=== PATIENT | male | born 1985 | race Caucasian/White ===

== ENCOUNTER 2021-01-23 10:09 | Emergency (ER) | payer OTHER ==
[2021-01-23 10:17] VITALS: BP 162/113; PULSE 95; RESP 16; TEMP 97.6
--- NOTE | 2021-01-23 10:48 | ED ---
General Adult HPI - General Chief complaint: Neuro Symptoms/Deficit Stated complaint: facial numbness Time Seen by Provider: 01/23/21 10:25 Source: patient Mode of arrival: ambulatory Limitations: no limitations - History of Present Illness Initial comments: 35-year-old male with history of bipolar and alcohol abuse presents to emergency department with a chief complaint of facial numbness. Patient reports his facial numbness happened yesterday lasted for several hours. He decided to drink and O2 alleviate his symptoms which then resolved. Patient reports he woke up this morning and noticed the symptoms again. States most of the tenderness sensation is located on the left cheek. He denies one sided facial weakness or drooping. He denies any blurry vision, one-sided weakness or paresthesias in the extremities. He denies any headaches, nausea, vomiting. He denies any chest pain or shortness of breath. States he otherwise drinks about a fifth per day of alcohol. His bipolar disorder is not currently treated. - Related Data Home Medications Medication Instructions Recorded Confirmed No Known Home Medications 01/23/21 01/23/21 Allergies Allergy/AdvReac Type Severity Reaction Status Date / Time No Known Allergies Allergy Verified 01/23/21 10:53 Review of Systems ROS Statement: Those systems with pertinent positive or pertinent negative responses have been documented in the HPI. ROS Other: All systems not noted in ROS Statement are negative. Past Medical History Additional Past Medical History / Comment(s): ruptured spleen History of Any Multi-Drug Resistant Organisms: None Reported Past Psychological History: Bipolar Smoking Status: Current every day smoker Past Alcohol Use History: Daily Past Drug Use History: Marijuana General Exam Limitations: no limitations General appearance: alert, in no apparent distress Head exam: Present: atraumatic, normocephalic, normal inspection Eye exam: Present: normal appearance, PERRL, EOMI. Absent: scleral icterus, conjunctival injection, nystagmus Pupils: Present: normal accommodation ENT exam: Present: normal exam, normal oropharynx, mucous membranes moist, TM's normal bilaterally, normal external ear exam Neck exam: Present: normal inspection, full ROM. Absent: tenderness Respiratory exam: Present: normal lung sounds bilaterally. Absent: respiratory distress Cardiovascular Exam: Present: regular rate, normal rhythm, normal heart sounds GI/Abdominal exam: Present: soft. Absent: distended, tenderness, guarding, rebound Extremities exam: Present: normal inspection, full ROM, normal capillary refill. Absent: tenderness, pedal edema, joint swelling Back exam: Present: normal inspection, full ROM. Absent: tenderness Neurological exam: Present: alert, oriented X3, CN II-XII intact, normal gait Expanded Patient oriented to: Present: person, place, time Speech: Present: fluid speech Cranial nerves: EOM's Intact: Normal, Gag Reflex: Normal, Tongue Deviation: Normal, Nystagmus: Normal, Facial Sensation: Normal Cerebellar function: Finger to Nose: Normal Sensory exam: Upper Extremity Light Touch: Normal, Upper Extremity Pin Prick: Normal, Lower Extremity Light Touch: Normal, Lower Extremity Pin Prick: Normal DTR: Patellar (R): 4+, Patellar (L): 4+ Psychiatric exam: Present: normal affect, normal mood Skin exam: Present: warm, dry, intact, normal color Course Vital Signs 01/23/21 10:14 Temperature 97.6 F Pulse Rate 95 Respiratory 16 Rate Blood Pressure 162/113 O2 Sat by Pulse 97 Oximetry Medical Decision Making - Medical Decision Making 35-year-old male presenting to the emergency department with a chief complaint of patient tingling. On physical examination, no focal neural deficits. NIH score of 0. Tingling is only located over the left cheek. No concerns for CVA at this time. Could be a possible onset of early Noonan's palsy. Although, he is still able to move his forehead on both sides. CT of the brain is unremarkable. Patient was advised to follow with his primary care physician. Strict return parameters were thoroughly discussed with patient was understanding and agreeable. Case discussed with Dr. Randall. Disposition Clinical Impression: Facial paresthesia Disposition: HOME SELF-CARE Condition: Stable Instructions (If sedation given, give patient instructions): Paresthesia (ED) Additional Instructions: Follow with the primary care physician. Return to emergency department if symptoms worsen. Is patient prescribed a controlled substance at d/c from ED?: No Referrals: Jesus Islas MD [Primary Care Provider] - 1-2 days Time of Disposition: 11:57
--- NOTE | 2021-01-23 11:25 | CT ---
EXAMINATION TYPE: CT brain ramilaine wo con DATE OF EXAM: 01/23/2021 COMPARISON: NONE HISTORY: Left sided face numbness. Neck pain. CT DLP: 1670.5 mGycm. Automated Exposure Control for Dose Reduction was Utilized. TECHNIQUE: CT scan of the head and cervical spine are performed without contrast. FINDINGS: There is no acute intracranial hemorrhage, mass effect, or midline shift identified. The ventricles and sulci are within normal limits in size. Rosenberg-white matter differentiation is maintai swathi. The globes are intact and the visualized sinuses are clear. There is also some deviated to right of midline. Cervical spine is visualized in its entirety from C1 through upper thoracic levels and demonstrates s traightened alignment without evidence of acute fracture or dislocation. Prevertebral soft tissue ap pears within normal limits. The C1-C2 articulation is within normal limits on the coronal images. V ertebral body heights and disc space heights are maintained. Spinal canal is preserved. Axial images show no suspicious abnormality. Thyroid gland is within normal limits. Lung apices show no pneumothor ax. IMPRESSION: 1. There is no acute fracture or dislocation evident in the cervical spine. 2. No acute intracranial hemorrhage or midline shift is seen.
== END 2021-01-23 12:04 | disposition home or self-care (01) ==
LOC: EC 10:09
DX: R20.2 Paresthesia of skin (principal); F31.9 Bipolar disorder, unspecified; F17.200 Nicotine dependence, unspecified, uncomplicated; F12.90 Cannabis use, unspecified, uncomplicated
CPT/HCPCS: 70450; 72125; 99284

== ENCOUNTER 2022-03-10 23:43 | Inpatient (IN) | payer OTHER ==
--- NOTE | 2022-03-11 07:05 | ED ---
Psych HPI - General Chief Complaint: Alcohol Stated Complaint: ETOH Time Seen by Provider: 03/10/22 23:46 Source: EMS Mode of arrival: EMS Limitations: no limitations - History of Present Illness MD Complaint: suicidal ideation, feels depressed -: days(s) Associated Psychiatric Symptoms: depression, suicidal ideation History of same: Yes Quality: getting worse Improves With: none Worsens With: alcohol Context: recent alcohol abuse - Related Data Home Medications Medication Instructions Recorded Confirmed No Known Home Medications 01/23/21 01/23/21 Allergies Allergy/AdvReac Type Severity Reaction Status Date / Time No Known Allergies Allergy Verified 01/23/21 10:53 Review of Systems ROS Statement: Those systems with pertinent positive or pertinent negative responses have been documented in the HPI. ROS Other: All systems not noted in ROS Statement are negative. Constitutional: Denies: fever Respiratory: Denies: cough, dyspnea Cardiovascular: Denies: chest pain, palpitations Gastrointestinal: Denies: abdominal pain, vomiting, diarrhea Genitourinary: Denies: dysuria Musculoskeletal: Denies: back pain Skin: Denies: rash Neurological: Denies: headache Psychiatric: Reports: depression, suicidal thoughts Past Medical History Additional Past Medical History / Comment(s): ruptured spleen History of Any Multi-Drug Resistant Organisms: None Reported Past Psychological History: Bipolar Smoking Status: Current every day smoker Past Alcohol Use History: Daily Past Drug Use History: Marijuana General Exam General appearance: alert, appears intoxicated Head exam: Present: atraumatic, normocephalic Eye exam: Present: normal appearance. Absent: scleral icterus, conjunctival injection ENT exam: Present: normal oropharynx Neck exam: Present: normal inspection Respiratory exam: Present: normal lung sounds bilaterally. Absent: respiratory distress, wheezes, rales, rhonchi, stridor Cardiovascular Exam: Present: regular rate, normal rhythm, normal heart sounds. Absent: systolic murmur, diastolic murmur, rubs, gallop GI/Abdominal exam: Present: soft. Absent: distended, tenderness, guarding, rebound, rigid Extremities exam: Present: normal inspection, normal capillary refill. Absent: pedal edema, calf tenderness Back exam: Present: normal inspection Neurological exam: Present: alert Psychiatric exam: Present: depressed, suicidal ideation. Absent: agitated, anxious, flat affect, manic, homicidal ideation Skin exam: Present: warm, dry, intact, normal color. Absent: rash Course Vital Signs 03/10/22 03/11/22 03/11/22 23:46 01:06 03:14 Temperature 98.8 F Pulse Rate 99 84 82 Respiratory 20 18 18 Rate Blood Pressure 139/101 141/94 145/98 O2 Sat by Pulse 96 97 99 Oximetry 03/11/22 03/11/22 04:46 06:00 Temperature Pulse Rate 82 89 Respiratory 18 18 Rate Blood Pressure 147/88 144/97 O2 Sat by Pulse 97 96 Oximetry Disposition Clinical Impression: Alcoholic intoxication, Mood disorder Disposition: ADMITTED IP TO THIS HOSP Condition: Fair Instructions (If sedation given, give patient instructions): Mood Disorders (ED) Is patient prescribed a controlled substance at d/c from ED?: No Referrals: Jesus Islas MD [Primary Care Provider] - 1-2 days
[2022-03-11] MEDS ORDERED: ACETAMINOPHEN TAB 325 MG TAB PO PRN (07:24)
[2022-03-11] MEDS ORDERED: NALOXONE 0.4 MG/ML 1 ML VIAL IV PRN (07:24)
--- NOTE | 2022-03-11 07:55 | ED ---
Medical Decision Making - Medical Decision Making Patient tested positive for COVID-19 infection. Patient is Made for monoclonal antibodies and would like to receive them. Secondary to COVID-19 infection patient is not able to be admitted to the psychiatric floor at this time. Dr. Islas has been paged for admission to medical floor. Case was discussed with Dr. Islas, who will admit. - Lab Data Lab Results 03/11/22 Range/Units 06:38 Coronavirus (PCR) Detected A (Not Detectd) Disposition Clinical Impression: Alcoholic intoxication, Mood disorder, COVID-19 Disposition: ADMITTED IP TO THIS HOSP Condition: Fair Is patient prescribed a controlled substance at d/c from ED?: No Time of Disposition: 07:55
[2022-03-11] MEDS ORDERED: BEBTELOVIMAB (EUA) 175 MG/2 ML VIAL IV ONE (08:15)
[2022-03-11] MEDS: ASCORBIC ACID 500 MG TAB PO SCH ×2 (08:27→20:27)
[2022-03-11] MEDS: CHOLECALCIFEROL 125 MCG (5000 IU) TABLET PO SCH (08:27)
[2022-03-11] MEDS: ZINC SULFATE 220 MG CAP PO SCH (08:27)
[2022-03-11] MEDS ORDERED: NICOTINE 14MG/24HR PATCH TRANSDERM STA (09:00)
[2022-03-11] MEDS ORDERED: LORazepam 2 MG/ML INJ IV PRN ×2 (11:09)
[2022-03-11] MEDS ORDERED: ONDANSETRON 4 MG/2 ML VIAL IVP PRN (11:09)
[2022-03-11] MEDS: LORazepam 2 MG/ML INJ IV PRN ×2 (11:22→16:02)
--- NOTE | 2022-03-11 13:13 | P.HP ---
Psychiatric H&P - . H&P Date: 03/11/22 History & Physical: Allergies Allergy/AdvReac Type Severity Reaction Status Date / Time No Known Allergies Allergy Verified 03/11/22 07:49 Vital Signs Temp 98.8 F 03/10/22 23:46 Pulse 80 03/11/22 09:12 Resp 18 03/11/22 09:12 BP 136/92 03/11/22 09:12 Pulse Ox 98 03/11/22 09:12 Intake & Output 03/10/22 03/11/22 03/11/22 18:59 06:59 18:59 Weight 129.274 kg 129.274 kg Laboratory Last Values Coronavirus (PCR) Detected (Not Detectd) A 03/11/22 06:38 03/11/22 13:03 IDENTIFYING DATA: Patient is a 37-year-old male who currently lives with his brother in a house is single, has 1. He is currently unemployed for the past 2 years. HPI: Patient presented to the hospital yesterday complaining of alcohol withdrawal symptoms, depression and made suicidal statements. Patient was found to be covid positive and was supposed to be transferred to the mental health unit however was admitted to the medical floors for further treatment. Patient has been on CIWA protocol with when necessary Ativan being given. Patient was seen today by aligner typewriter and had a sitter at his side. He was fairly cooperative during the interview and states that she has been feeling "physically ill" with the covid sx lately. He claims that he is also been increasing his alcohol intake to approximately 1 gallon of vodka per day for the past month or so. He states that he has been drinking heavily ultimately a half gallon every other day for the past 2 years. He claims that he gets intoxicated daily and frequently "blacks out". He states that he has been having financial issues as he is not able to be employed for the past 2 years. 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 He claims that he has been having mild anxiety however significant depression. He states that she mainly feels suicidal when he's been drinking however currently is denying any suicidal thoughts or intent or plan. He claims that he has been having problems with his vision and also his health has been progressively worsening. He claims that he sleeps about 3-5 hours a night. He states that he does have some nausea and vomiting and was given Zofran earlier. At this time he does complain of some tremors and anxiety and also nausea, denies any history of seizures from withdrawal of alcohol. Patient denies any suicidal or homicidal ideations intent or plan. At this time patient denies any auditory or visual hallucinations. Patient denies any flight of ideas racing thoughts and increased in goal directed behavior. Patient admits to using alcohol as noted above. He claims that he was at [facility] about 3 times in the past. He states that he also smokes cigarettes daily. He denies any other recreational drug use. PAST PSYCHIATRIC HISTORY: Patient states that he has a history of depression and alcohol use. Patient denies being on any psychiatric medications. He claims that he was admitted to a psychiatric hospital 2 times in the past and his last admission was 4 years ago at [facility]. Patient denies any psychiatric outpatient follow-up. Patient denies any history of suicide attempts in the past. PMH: As per medicine H&P. ALLERGIES: as per EMR CHEMICAL DEPENDENCY HISTORY: as per HPI FAMILY PSYCHIATRIC/SUBSTANCE USE HISTORY: denies SOCIAL HISTORY: Patient was born and raised in [facility]. He states that he has been incarcerated several times in the past for different charges and did state that one or 2 of them were related to alcohol. He claims that he did have a DUI several years ago. 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 He claims that he completed his GED.. MENTAL STATUS EXAM: General Appearance: Patient appears to be overweight, stated age is alert, directable, and attempts to cooperate. Patient appears to have poor hygiene and grooming. Behavior: Patient is seated without any agitated behavior. Attempts to cooperate. Speech: Patient's speech is fluent and nonpressured. Mood/Affect: Patient reports their mood is depressed, affect is congruent and constricted. Suicidality/Homicidality: Patient denies having any homicidal ideation intent or plan. Denies any suicidal ideations intent or plan Perceptions: Patient denies any visual hallucinations and denies any auditory hallucinations Though content/process: There is no evidence of any delusional thought content and thought process is linear and goal-directed. Memory and concentration: AOX3, grossly intact for the purposes of this session. Can spell "WORLD" backwards Judgment and insight: poor IMPRESSIONS: Major depressive disorder, without psychotic features Alcohol use disorder, severe dependence Nicotine dependence PLAN: -At this time patient DOES NOT meet criteria for inpatient psychiatric admission however will continue to follow along and treat patient for his psychiatric concerns. -Would recommend the following medication changes/additions: Start naltrexone 50 mg daily for alcohol cravings. We'll check LFTs and comprehensive panel. Start Lexapro 10 mg daily for mood/anxiety, trazodone 50 mg daily at bedtime for insomnia. Librium 20 mg tid for alcohol withdrawal. -CIWA protocol with PRN Ativan for alcohol withdrawal. Continue to monitor vital signs. -Can discontinue 1:1 sitter at this time as patient is not currently an imminent threat to themselves -residential worker to provide patient with outpatient mental health/psychiatry resources for appropriate follow up upon discharge -English As A Second Language Instructor spoke with patient about substance abuse and the harmful effects on medical and mental health, patient verbally understood and agreed. -residential worker to provide patient substance use treatment resources including AA/NA meetings in the community. -residential worker to provide patient with access line number to call for inpatient substance rehab -Communicated plan to patient's nurse -Will continue to follow along -Please contact with any questions. 03/11/22 13:12
[2022-03-11] MEDS: ESCITALOPRAM 10 MG TAB PO SCH (13:48)
[2022-03-11] MEDS: IBUPROFEN 400 MG TAB PO PRN (13:51)
[2022-03-11 18:59] LABS: Albumin 5.1 g/dL (3.8-4.9); Albumin/Globulin Ratio 1.97 (1.60-3.17); Anion Gap 11.5 mmol/L (10.00-18.00); BUN/Creat Ratio 11.41 Ratio (12.00-20.00); Blood Urea Nitrogen 9.4 mg/dL (9.0-27.0); Calcium 9.6 mg/dL (8.7-10.3); Carbon Dioxide 27.2 mmol/L (20.0-27.5); Globulin 2.6 g/dL (1.6-3.3); Non-African American GFR(CKD) 112.2 (60.0-200.0); Potassium 4.4 mmol/L (3.5-5.5); Total Bilirubin 0.6 mg/dL (0.30-1.20); Total Protein 7.6 g/dL (6.2-8.2)
[2022-03-11] MEDS: traZODone HCL 50 MG TAB PO SCH (20:27)
[2022-03-11] MEDS ORDERED: traZODone HCL 100 MG TAB PO SCH (21:00)
[2022-03-12] MEDS: IBUPROFEN 400 MG TAB PO PRN ×2 (01:25→23:08)
[2022-03-12] MEDS: LORazepam 2 MG/ML INJ IV PRN ×2 (06:31→15:01)
[2022-03-12] MEDS: ZINC SULFATE 220 MG CAP PO SCH (08:45)
[2022-03-12] MEDS: CHOLECALCIFEROL 125 MCG (5000 IU) TABLET PO SCH (08:45)
[2022-03-12] MEDS: ESCITALOPRAM 10 MG TAB PO SCH (08:45)
[2022-03-12] MEDS: ASCORBIC ACID 500 MG TAB PO SCH ×2 (08:45→22:10)
[2022-03-12] MEDS ORDERED: NALTREXONE HCL 50 MG TAB PO SCH (09:00)
[2022-03-12] MEDS: NICOTINE 21MG/24HR PATCH TRANSDERM SCH (12:15)
[2022-03-12 12:58] LABS: Potassium 4.3 mmol/L (3.5-5.1)
[2022-03-12 13:01] LABS: ALT 313 U/L (4-49); AST 359 U/L (17-59); African American GFR (CKD) >90 (>60 ml/min/1.73 sqM); Albumin 4.3 g/dL (3.5-5.0); Albumin/Globulin Ratio 1.4; Alkaline Phosphatase 83 U/L (38-126); Anion Gap 11 mmol/L; Blood Urea Nitrogen 11 mg/dL (9-20); Carbon Dioxide 27 mmol/L (22-30); Chloride 98 mmol/L (98-107); Globulin 3.1 g/dL; Glucose 113 mg/dL (74-99); Non-African American GFR(CKD) >90 (>60 ml/min/1.73 sqM); Sodium 136 mmol/L (137-145); Total Bilirubin 0.7 mg/dL (0.2-1.3); Total Protein 7.4 g/dL (6.3-8.2)
[2022-03-12 13:02] LABS: Calcium 9.1 mg/dL (8.4-10.2)
--- NOTE | 2022-03-12 13:04 | P.PN ---
Progress Note - Text Progress Note Date: 03/12/22 Interval History: Patient was seen today for psychiatric follow-up regarding his depression and alcohol use/withdrawal. Patient's AST and ALT level came back elevated. Patients nurse had no complaints of patient and he has been doing fairly well however did receive Ativan last night for withdrawal. Patient was seen lying in his bed today watching television and [email or web address] street director. He was fairly cooperative today and appeared to have a brighter affect. He states that he feels "a lot better" compared to yesterday. He states that his withdrawal symptoms have improved significantly. He claims that the tremors have also improved. He states that he slept better last night with the trazodone. He is denying any side effects at this time. He claims that his anxiety is also "calm down". He appears to be more future oriented. We spoke about the options for treatment of alcohol and patient states that he does not want to go to [facility] in [place] and had a bad experience at [facility] and wants to do outpatient substance use treatment through [facility]. At this time patient denies any suicidal or homical ideations, intent or plan. Patient denies any auditory, visual hallucinations and denies any paranoia or delusions. Patient denies any side effects from the medications and has been compliant with meds. Mental Status Exam: General Appearance: Patient appears to be overweight, stated age is alert, directable, and attempts to cooperate. Patient appears to have improving hygiene and grooming. Behavior: Patient is seated without any agitated behavior. Attempts to cooperate. Speech: Patient's speech is fluent and nonpressured. Mood/Affect: Patient reports their mood is improved, affect is congruent Suicidality/Homicidality: Patient denies having any homicidal ideation intent or plan. Denies any suicidal ideations intent or plan Perceptions: Patient denies any visual hallucinations and denies any auditory hallucinations Though content/process: There is no evidence of any delusional thought content and thought process is linear and goal-directed. More future oriented Memory and concentration: AOX3, grossly intact for the purposes of this session Judgment and insight: Improving mildly. IMPRESSIONS: Major depressive disorder, without psychotic features Alcohol use disorder, severe dependence Nicotine dependence PLAN: -At this time patient DOES NOT meet criteria for inpatient psychiatric admission however will continue to follow along and treat patient for his psychiatric concerns. -Would recommend the following medication changes/additions: dscontinue Naltrexone due to elevated LFTs. Start campral 333 mg tid and icnrease to 666mg tid tomorrow for etoh withdrawal. Lexapro 10 mg daily for mood/anxiety, trazodone 50 mg daily at bedtime for insomnia. Librium 20 mg tid for alcohol withdrawal, however can taper down tomorrow. -CIWA protocol with PRN Ativan for alcohol withdrawal. Continue to monitor vital signs. -ironing worker to provide patient with outpatient mental health/psychiatry resources for appropriate follow up upon discharge -Anatomical Embalmer spoke with patient about substance abuse and the harmful effects on medical and mental health, patient verbally understood and agreed. -ironing worker to provide patient substance use treatment resources including AA/NA meetings in the community. -Patient is refusing inpatient rehab at this time and would prefer to do outpatient treatment instead -Communicated plan to patient's nurse -At this time psychiatry will sign off -Please contact with any questions.
[2022-03-12 13:05] LABS: Basophils # (A) 0.1 k/uL (0-0.2); Basophils % (A) 1 %; Eosinophils # (A) 0.1 k/uL (0-0.7); Eosinophils % (A) 2 %; Lymphocytes % (A) 16 %; MCH 35.8 pg (25.0-35.0); MCHC 33.3 g/dL (31.0-37.0); MCV 107.5 fL (80.0-100.0); Macrocytosis Moderate; Mean Platelet Volume 7.7; Monocytes # (A) 0.3 k/uL (0-1.0); Monocytes % (A) 5 %; Neutrophils # (A) 4.9 k/uL (1.3-7.7); Neutrophils % (A) 75 %; Platelet Count 178 k/uL (150-450); RDW 12.6 % (11.5-15.5); WBC 6.5 k/uL (3.8-10.6)
[2022-03-12] MEDS: ACAMPROSATE CALCIUM 333 MG TABLET.DR PO SCH ×4 (14:25→22:10)
[2022-03-12] MEDS: traZODone HCL 50 MG TAB PO SCH (22:10)
[2022-03-13] MEDS: LORazepam 2 MG/ML INJ IV PRN ×2 (04:59→11:54)
[2022-03-13] MEDS ORDERED: ACAMPROSATE CALCIUM 333 MG TABLET.DR PO SCH (07:00)
[2022-03-13] MEDS: NICOTINE 21MG/24HR PATCH TRANSDERM SCH (08:38)
[2022-03-13] MEDS: ZINC SULFATE 220 MG CAP PO SCH (08:38)
[2022-03-13] MEDS: ACAMPROSATE CALCIUM 333 MG TABLET.DR PO SCH ×3 (08:38→22:03)
[2022-03-13] MEDS: ASCORBIC ACID 500 MG TAB PO SCH ×2 (08:38→22:03)
[2022-03-13] MEDS: CHOLECALCIFEROL 125 MCG (5000 IU) TABLET PO SCH (08:38)
[2022-03-13] MEDS: ESCITALOPRAM 10 MG TAB PO SCH (09:44)
[2022-03-13 21:33] LABS: Glucose,Whole Blood 139 mg/dL (75-99)
[2022-03-13] MEDS: traZODone HCL 50 MG TAB PO SCH (22:03)
[2022-03-14] MEDS: ACAMPROSATE CALCIUM 333 MG TABLET.DR PO SCH ×3 (07:41→22:09)
[2022-03-14] MEDS: ASCORBIC ACID 500 MG TAB PO SCH ×2 (07:41→20:16)
[2022-03-14] MEDS: ZINC SULFATE 220 MG CAP PO SCH (07:41)
[2022-03-14] MEDS: ESCITALOPRAM 10 MG TAB PO SCH (07:42)
[2022-03-14] MEDS: CHOLECALCIFEROL 125 MCG (5000 IU) TABLET PO SCH (07:42)
[2022-03-14] MEDS: NICOTINE 21MG/24HR PATCH TRANSDERM SCH (07:42)
[2022-03-14] MEDS: LORazepam 2 MG/ML INJ IV PRN ×2 (11:58→17:32)
[2022-03-14 16:28] LABS: ALT 216 U/L (4-49); AST 147 U/L (17-59)
--- NOTE | 2022-03-14 18:41 | PN ---
PROGRESS NOTE DATE OF SERVICE: 03/12/2022 CHIEF COMPLAINT: Acute alcohol intoxication, depression and DTs. HISTORY OF PRESENT ILLNESS: This gentleman is in full-blown DTs. He is quite tremulous and he is on CIWA protocol. He is being evaluated by Psychiatry for his comments about wanting to kill himself. PHYSICAL EXAMINATION: Chest is clear. Cardiac exam demonstrates tachycardia. The abdomen is soft and protuberant. He is tremulous. IMPRESSION: 1. Delirium tremens. 2. Major depression. PLAN: 1. Await psych evaluation. 2. Continue with CIAR protocol. MMODL / IJN: [id number] /
--- NOTE | 2022-03-14 18:49 | PN ---
PROGRESS NOTE DATE OF SERVICE: 03/13/2022 CHIEF COMPLAINT: DTs. HISTORY OF PRESENT ILLNESS: This gentleman is still pretty agitated and is still receiving IV Ativan. He has had no seizures. He seems to be fairly awake, but still feels shaky. PHYSICAL EXAMINATION: Chest is clear. Cardiac exam is normal. Abdomen is soft and nontender. Vital signs are normal. IMPRESSION: 1. Delirium tremens. 2. Depression. 3. Alcoholism. PLAN: Hold off another day before considering discharge. MMODL / IJN: [id number] /
--- NOTE | 2022-03-14 18:56 | PN ---
PROGRESS NOTE DATE OF SERVICE: 03/14/2022 CHIEF COMPLAINT: Acute alcohol intoxication, DTs and alcoholic hepatitis. HISTORY OF PRESENT ILLNESS: This gentleman is doing fairly well. He thinks he can go home. He is still a little bit shaky and slightly unstable. It was planned that he would go home, but then it was noted that his liver enzymes were quite high, and these will be repeated before he goes. They have been ordered today and he will possibly be able to go home tomorrow. PHYSICAL EXAMINATION: His chest is clear. Cardiac exam is normal. The abdomen is protuberant and soft. There are no masses or visceromegaly. There is no jaundice. IMPRESSION: 1. Acute alcohol intoxication. 2. Alcoholic hepatitis. 3. Delirium tremens. 4. History of hypertension. 5. Positive COVID. PLAN: Repeat liver function studies and probably home tomorrow. MMODL / SALTYN: [id number] /
[2022-03-14] MEDS: traZODone HCL 50 MG TAB PO SCH (20:16)
[2022-03-15 06:37] VITALS: TEMP 97.9
[2022-03-15] MEDS: ESCITALOPRAM 10 MG TAB PO SCH (09:09)
[2022-03-15] MEDS: ACAMPROSATE CALCIUM 333 MG TABLET.DR PO SCH (09:09)
[2022-03-15] MEDS: CHOLECALCIFEROL 125 MCG (5000 IU) TABLET PO SCH (09:09)
[2022-03-15] MEDS: ASCORBIC ACID 500 MG TAB PO SCH (09:09)
[2022-03-15] MEDS: ZINC SULFATE 220 MG CAP PO SCH (09:09)
[2022-03-15] MEDS: NICOTINE 21MG/24HR PATCH TRANSDERM SCH (09:09)
[2022-03-15 15:13] VITALS: BP 133/92; PULSE 83; RESP 20
--- NOTE | 2022-03-18 21:53 | DS ---
DISCHARGE SUMMARY CHIEF COMPLAINT: Acute alcohol intoxication and depression. HISTORY OF PRESENT ILLNESS AND PHYSICAL EXAMINATION: Details of this man's history and physical can be found in the initial workup. LABORATORY STUDIES: While he was in the hospital he had laboratory studies, details of which can be found in the laboratory section of his chart. COURSE IN THE HOSPITAL: After admission he was placed on bedrest, started on the CIWA protocol, and he went into DTs. Because of his depression he had a sitter and he was seen by Psychiatry. When he became more awake and alert, Psychiatry did not feel that he was a candidate for admission to the psych unit. He improved and finally it was felt that he could go home on March 15. He will go home on Campral 666 mg t.i.d. along with Lexapro 10 mg once a day and thiamine 200 mg twice a day. He will be seen in the office in a few days. FINAL DIAGNOSIS: 1. Acute alcohol intoxication. 2. Chronic alcoholism. 3. Alcoholic hepatitis. 4. Major depression. OPERATIONS: None. CONSULTATION: Psychiatry. He is improved. MMODL / IJN: [id number] /
== END 2022-03-15 15:45 | disposition home or self-care (01) | DRG 896 ==
LOC: EC 23:43 → 6NMEDSUR 03-11 07:24 → 4SSUR 03-11 08:30 → OBSVTOIN 03-12 10:40
PROVIDERS: ADMIT Family Medicine; ATTEND Family Medicine
PROC: HZ2ZZZZ Detoxification Services for Substance Abuse Treatment (ICD-10-PCS; principal; 2022-03-12)
DX: F10.231 Alcohol dependence with withdrawal delirium (principal); U07.1 COVID-19; R45.851 Suicidal ideations; F10.229 Alcohol dependence with intoxication, unspecified; F17.210 Nicotine dependence, cigarettes, uncomplicated; F32.9 Major depressive disorder, single episode, unspecified; F41.9 Anxiety disorder, unspecified; G47.00 Insomnia, unspecified; I10 Essential (primary) hypertension; K70.10 Alcoholic hepatitis without ascites; Z79.899 Other long term (current) drug therapy; Z59.9 Problem related to housing and economic circumstances, unspecified
CPT/HCPCS: 80053; 82075; 84450; 84460; 85025; 87635; 99285

== ENCOUNTER 2023-04-10 08:44 | Emergency (ER) | payer OTHER ==
[2023-04-10 09:04] VITALS: BP 152/92; PULSE 92; RESP 18; TEMP 98.4
--- NOTE | 2023-04-10 09:37 | ED ---
General Adult HPI - General Chief complaint: Skin/Abscess/Foreign Body Stated complaint: abd pain Time Seen by Provider: 04/10/23 09:06 Source: patient Mode of arrival: ambulatory Limitations: no limitations - History of Present Illness Initial comments: 38-year-old male presents to the ED with the chief complaint of rash. Patient states that he went on a "bike ride" approximately 3 months ago. States after this, started to develop an itchy rash between his butt cheeks. States that he has been using baby powder on this and was initially improving however states that it has now become worse and has spread. In addition, patient states that he has an abscess underneath his left testicle. Patient states that he has had this for "years". States recently however it has grown in size reports that it started draining a few days ago. Reports no active drainage today. No other complaints. - Related Data Previous Rx's Medication Instructions Recorded Acamprosate Calcium [Campral] 666 mg PO TID #30 tablet 03/15/22 Escitalopram [Lexapro] 10 mg PO DAILY #10 tab 03/15/22 Clotrimazole/Betameth Cream 1 applic TOPICAL BID #45 gm 04/10/23 [Lotrisone] Doxycycline [Vibramycin] 100 mg PO BID #20 capsule 04/10/23 Allergies Allergy/AdvReac Type Severity Reaction Status Date / Time No Known Allergies Allergy Verified 04/10/23 09:03 Review of Systems ROS Statement: Those systems with pertinent positive or pertinent negative responses have been documented in the HPI. ROS Other: All systems not noted in ROS Statement are negative. Past Medical History Past Medical History: Eye Disorder, GERD/Reflux, Hypertension Additional Past Medical History / Comment(s): ETOH abuse/withdrawal symptoms- shaking/nausea/headaches, pt states for past year has been having occasionally double/blurred vision, ruptured spleen, umbilical hernia, frequent diarrhea/painful to move bowels. History of Any Multi-Drug Resistant Organisms: None Reported Additional Past Surgical History / Comment(s): L hand injury/sutured. Past Anesthesia/Blood Transfusion Reactions: No Reported Reaction Past Psychological History: Bipolar, Depression Smoking Status: Current every day smoker Past Alcohol Use History: Daily, Heavy Past Drug Use History: Marijuana - Past Family History Mother Family Medical History: Mitral Valve Prolapse (MVP), Thyroid Disorder Additional Family Medical History / Comment(s): Mother of a [place] at the age of 46 yrs. Father Additional Family Medical History / Comment(s): Cellulitis General Exam Limitations: no limitations General appearance: alert Head exam: Present: atraumatic, normocephalic Eye exam: Present: normal appearance Respiratory exam: Present: normal lung sounds bilaterally Cardiovascular Exam: Present: regular rate, normal rhythm Rectal exam: Present: other (The perirectal area erythematous rash with Galey plaques. No significant warmth. Tender to palpation.) exam: Present: other (Approximately 6 x 3 oblong, irregularly shaped abscess underneath the left testicle. Indurated. No surrounding warmth or erythema. No active drainage.) Neurological exam: Present: oriented X3 Skin exam: Present: dry Course Vital Signs 04/10/23 08:59 Temperature 98.4 F Pulse Rate 92 Respiratory 18 Rate Blood Pressure 152/92 O2 Sat by Pulse 98 Oximetry Medical Decision Making - Medical Decision Making Was pt. sent in by a medical professional or institution (, PA, UPPER MARKER, urgent care, hospital, or penitentiary...) When possible be specific @ -No Did you speak to anyone other than the patient for history (EMS, parent, family, police, friend...)? What history was obtained from this source @ -No Did you review nursing and triage notes (agree or disagree)? Why? @ -I reviewed and agree with nursing and triage notes Were old charts reviewed (outside hosp., previous admission, EMS record, old EKG, old radiological studies, urgent care reports/EKG's, penitentiary records)? Report findings @ -No old charts were reviewed Differential Diagnosis (chest pain, altered mental status, abdominal pain women, abdominal pain men, vaginal bleeding, weakness, fever, dyspnea, syncope, headache, dizziness, GI bleed, back pain, seizure, CVA, palpatations, mental health, musculoskeletal)? @ -Atopic dermatitis, furuncle, carbuncle, scabies. This is not meant to be an all-inclusive list. EKG interpreted by me (3pts min.). @ -As above X-rays interpreted by me (1pt min.). @ -None done CT interpreted by me (1pt min.). @ -None done U/S interpreted by me (1pt. min.). @ -None done What testing was considered but not performed or refused? (CT, X-rays, U/S, labs)? Why? @ -None What meds were considered but not given or refused? Why? @ -None Did you discuss the management of the patient with other professionals (professionals i.e. , PA, UPPER MARKER, lab, RT, psych nurse, social work instructor, practice performance manager, teacher, medical officer psychiatry, rn case management)? Give summary @ -No Was smoking cessation discussed for >3mins.? @ -No Was critical care preformed (if so, how long)? @ -No Were there social determinants of health that impacted care today? How? (Homelessness, low income, unemployed, alcoholism, drug addiction, transportation, low edu. Level, literacy, decrease access to med. care, halfway, rehab)? @ -No Was there de-escalation of care discussed even if they declined (Discuss DNR or withdrawal of care, Hospice)? DNR status @ -No What co-morbidities impacted this encounter? (DM, HTN, Smoking, COPD, CAD, Cancer, CVA, ARF, Chemo, Hep., AIDS, mental health diagnosis, sleep apnea, morbid obesity)? @ -None Was patient admitted / discharged? Hospital course, mention meds given and route, prescriptions, significant lab abnormalities, going to OR and other pertinent info. @ -Discharged. He should provided prescription for antifungal combination steroid cream for candidal infection. Also provided Doxycycline. Advised to follow up with PCP. Undiagnosed new problem with uncertain prognosis? @ -No Drug Therapy requiring intensive monitoring for toxicity (Heparin, Nitro, Insulin, Cardizem)? @ -No Were any procedures done? @ -No Diagnosis/symptom? @ -Candidal rash Acute, or Chronic, or Acute on Chronic? @ -Chronic Uncomplicated (without systemic symptoms) or Complicated (systemic symptoms)? @ -default Side effects of treatment? @ -No Exacerbation, Progression, or Severe Exacerbation? @ -No Poses a threat to life or bodily function? How? (Chest pain, [place], [place], pneumonia, PE, COPD, DKA, ARF, appy, cholecystitis, CVA, Diverticulitis, Homicidal, Blank icidal, threat to staff... and all critical care pts) @ -No Disposition Clinical Impression: Elizabet infection Disposition: HOME SELF-CARE Additional Instructions: Please return to the Emergency Department if symptoms worsen or any other concerns. Prescriptions: Clotrimazole/Betameth Cream [Lotrisone] 1 applic TOPICAL BID #45 gm Doxycycline [Vibramycin] 100 mg PO BID #20 capsule Is patient prescribed a controlled substance at d/c from ED?: No Referrals: Jesus Islas MD [Primary Care Provider] - 1-2 days Time of Disposition: 09:35
== END 2023-04-10 10:51 | disposition home or self-care (01) ==
LOC: EC 08:44
DX: B37.9 Candidiasis, unspecified (principal); I10 Essential (primary) hypertension; F31.9 Bipolar disorder, unspecified; F17.200 Nicotine dependence, unspecified, uncomplicated; F12.90 Cannabis use, unspecified, uncomplicated
CPT/HCPCS: 99283

== ENCOUNTER 2023-04-18 14:28 | Inpatient (IN) | payer OTHER ==
--- NOTE | 2023-04-18 15:31 | ED ---
General Adult HPI - General Source: patient Mode of arrival: ambulatory Limitations: no limitations <Sammie Medina - Last Filed: 04/18/23 15:44> - General Source: RN notes reviewed, old records reviewed <Angus Mohr - Last Filed: 04/18/23 17:32> - General Chief complaint: Recheck/Abnormal Lab/Rx Stated complaint: alcohol detox - History of Present Illness Initial comments: 38-year-old male presents to the emergency department for chief complaint of alcohol detox. Patient states that he was sent in by Dr. Islas. Last drink was 6 hours ago. He reports heavy drinking for the past 3 months. Patient also reports "boil" near his rectum for around 2 weeks. He was seen recently and was prescribe antibiotics. He reports nausea with vomiting. (Sammie Medina) - Related Data Previous Rx's Medication Instructions Recorded Acamprosate Calcium [Campral] 666 mg PO TID #30 tablet 03/15/22 Escitalopram [Lexapro] 10 mg PO DAILY #10 tab 03/15/22 Clotrimazole/Betameth Cream 1 applic TOPICAL BID #45 gm 04/10/23 [Lotrisone] Doxycycline [Vibramycin] 100 mg PO BID #20 capsule 04/10/23 Allergies Allergy/AdvReac Type Severity Reaction Status Date / Time No Known Allergies Allergy Verified 04/18/23 15:27 Review of Systems ROS Other: All systems not noted in ROS Statement are negative. <Sammie Medina - Last Filed: 04/18/23 15:44> ROS Other: All systems not noted in ROS Statement are negative. <Angus Mohr - Last Filed: 04/18/23 17:32> ROS Statement: Those systems with pertinent positive or pertinent negative responses have been documented in the HPI. Past Medical History Past Medical History: Eye Disorder, GERD/Reflux, Hypertension Additional Past Medical History / Comment(s): ETOH abuse/withdrawal symptoms- shaking/nausea/headaches, pt states for past year has been having occasionally double/blurred vision, ruptured spleen, umbilical hernia, frequent d iarrhea/painful to move bowels. History of Any Multi-Drug Resistant Organisms: None Reported Additional Past Surgical History / Comment(s): L hand injury/sutured. Past Anesthesia/Blood Transfusion Reactions: No Reported Reaction Past Psychological History: Bipolar, Depression Smoking Status: Current every day smoker Past Alcohol Use History: Daily, Heavy Past Drug Use History: Marijuana - Past Family History Mother Family Medical History: Mitral Valve Prolapse (MVP), Thyroid Disorder Additional Family Medical History / Comment(s): Mother of a [place] at the age of 46 yrs. Father Additional Family Medical History / Comment(s): Cellulitis <Sammie Medina - Last Filed: 04/18/23 15:44> General Exam Limitations: no limitations <Sammie Medina - Last Filed: 04/18/23 15:44> General appearance: alert, in no apparent distress, anxious Head exam: Present: atraumatic, normocephalic Eye exam: Present: normal appearance, PERRL Neck exam: Present: normal inspection. Absent: tenderness, meningismus Respiratory exam: Present: normal lung sounds bilaterally. Absent: respiratory distress, wheezes Cardiovascular Exam: Present: regular rate, normal rhythm Extremities exam: Present: normal inspection, normal capillary refill Neurological exam: Present: alert, oriented X3, other (Tremulous) Psychiatric exam: Present: anxious Skin exam: Present: warm, dry <Angus Mohr - Last Filed: 04/18/23 17:32> Course Vital Signs 04/18/23 04/18/23 15:22 17:00 Temperature 98.0 F Pulse Rate 88 89 Respiratory 20 18 Rate Blood Pressure 162/91 154/103 O2 Sat by Pulse 95 96 Oximetry Medical Decision Making - Lab Data Result diagrams: 04/18/23 16:17 04/18/23 16:17 <Angus Mohr - Last Filed: 04/18/23 17:32> - Medical Decision Making Was pt. sent in by a medical professional or institution (, PA, MACHINE LEAD BURNER, urgent care, hospital, or group home...) When possible be specific @ -No Did you speak to anyone other than the patient for history (EMS, parent, family, police, friend...)? What history was obtained from this source @ -No Did you review nursing and triage notes (agree or disagree)? Why? @ -I reviewed and agree with nursing and triage notes Were old charts reviewed (outside hosp., previous admission, EMS record, old EKG, old radiological studies, urgent care reports/EKG's, group home records)? Report findings @ -No old charts were reviewed Differential Diagnosis (chest pain, altered mental status, abdominal pain women, abdominal pain men, vaginal bleeding, weakness, fever, dyspnea, syncope, headache, dizziness, GI bleed, back pain, seizure, CVA, palpatations, mental health, musculoskeletal)? @ -[Alcohol withdrawal, withdrawal seizure, delirium tremens EKG interpreted by me (3pts min.). @ -As above X-rays interpreted by me (1pt min.). @ -None done CT interpreted by me (1pt min.). @ -None done U/S interpreted by me (1pt. min.). @ -None done What testing was considered but not performed or refused? (CT, X-rays, U/S, labs)? Why? @ -None What meds were considered but not given or refused? Why? @ -None Did you discuss the management of the patient with other professionals (professionals i.e. , PA, MACHINE LEAD BURNER, lab, RT, psych nurse, child welfare social worker, personnel clerk, teacher, submarine advisory team watch officer, welfare case worker)? Give summary @ -No Was smoking cessation discussed for >3mins.? @ -No Was critical care preformed (if so, how long)? @ -No Were there social determinants of health that impacted care today? How? (Homelessness, low income, unemployed, alcoholism, drug addiction, transportation, low edu. Level, literacy, decrease access to med. care, [facility], rehab)? @ -Alcoholism Was there de-escalation of care discussed even if they declined (Discuss DNR or withdrawal of care, Hospice)? DNR status @ -No What co-morbidities impacted this encounter? (DM, HTN, Smoking, COPD, CAD, Cancer, CVA, ARF, Chemo, Hep., AIDS, mental health diagnosis, sleep apnea, morbid obesity)? @ -None Was patient admitted / discharged? Hospital course, mention meds given and route, prescriptions, significant lab abnormalities, going to OR and other pertinent info. @ -[38-year-old male presents for evaluation of alcohol withdrawal. Patient admits to half gallon of vodka daily. He was sent in by primary care provider. Patient states his last drink was at 9 AM today. He is tremulous on initial exam vital signs are stable. Alcohol level is 27 in the emergency department. He will be admitted for alcohol withdrawal. He does have elevated transaminitis consistent with alcoholic hepatitis. His magnesium is 1.3 which is replaced. Undiagnosed new problem with uncertain prognosis? @ -No Drug Therapy requiring intensive monitoring for toxicity (Heparin, Nitro, Insulin, Cardizem)? @ -No Were any procedures done? @ -No Diagnosis/symptom? @ -[Alcohol withdrawal Acute, or Chronic, or Acute on Chronic? @ -Acute Uncomplicated (without systemic symptoms) or Complicated (systemic symptoms)? @ -default Side effects of treatment? @ -No Exacerbation, Progression, or Severe Exacerbation? @ -No Poses a threat to life or bodily function? How? (Chest pain, [place], [place], pneumonia, PE, COPD, DKA, ARF, appy, cholecystitis, CVA, Diverticulitis, Homicidal, Suicidal, threat to staff... and all critical care pts) @ -[Yes, DTs (Angus Mohr) - Lab Data Lab Results 04/18/23 04/18/23 04/18/23 Range/Units 16:17 16:17 16:17 WBC 5.6 (3.8-10.6) k/uL RBC 4.44 (4.30-5.90) m/uL Hgb 14.2 (13.0-17.5) gm/dL Hct 42.1 (39.0-53.0) % MCV 94.8 (80.0-100.0) fL MCH 32.0 (25.0-35.0) pg MCHC 33.8 (31.0-37.0) g/dL RDW 12.0 (11.5-15.5) % Plt Count 233 (150-450) k/uL MPV 6.9 Neutrophils % 70 % Lymphocytes % 19 % Monocytes % 5 % Eosinophils % 4 % Basophils % 0 % Neutrophils # 3.9 (1.3-7.7) k/uL Lymphocytes # 1.1 (1.0-4.8) k/uL Monocytes # 0.3 (0-1.0) k/uL Eosinophils # 0.2 (0-0.7) k/uL Basophils # 0.0 (0-0.2) k/uL PT 10.3 (9.0-12.0) sec INR 1.0 (<1.2) APTT 27.6 (22.0-30.0) sec Sodium 136 L (137-145) mmol/L Potassium 4.6 (3.5-5.1) mmol/L Chloride 99 (98-107) mmol/L Carbon Dioxide 23 (22-30) mmol/L Anion Gap 14 mmol/L BUN 6 L (9-20) mg/dL Creatinine 0.48 L (0.66-1.25) mg/dL Est GFR (CKD-EPI)AfAm >90 (>60 ml/min/1.73 sqM) Est GFR (CKD-EPI)NonAf >90 (>60 ml/min/1.73 sqM) Glucose 96 (74-99) mg/dL Calcium 9.1 (8.4-10.2) mg/dL Magnesium 1.3 L (1.6-2.3) mg/dL Total Bilirubin 1.1 (0.2-1.3) mg/dL AST 404 H (17-59) U/L ALT 389 H (4-49) U/L Alkaline Phosphatase 102 (38-126) U/L Total Protein 8.3 H (6.3-8.2) g/dL Albumin 4.7 (3.5-5.0) g/dL Serum Alcohol 27 mg/dL Disposition <Sammie Medina - Last Filed: 04/18/23 15:44> Is patient prescribed a controlled substance at d/c from ED?: No Time of Disposition: 17:32 <Angus Mohr - Last Filed: 04/18/23 17:32> Clinical Impression: Hypomagnesemia, Alcohol withdrawal Disposition: ADMITTED IP TO THIS HOSP Condition: Serious Referrals: Jesus Islas MD [Primary Care Provider] - 1-2 days
[2023-04-18] MEDS ORDERED: LORazepam 2 MG/ML INJ IV STA (16:08)
[2023-04-18] MEDS ORDERED: SODIUM CHLORIDE 0.9% 500 ML 500 ML IV ONE (16:09)
[2023-04-18] MEDS ORDERED: LORazepam 2 MG/ML INJ IV PRN (16:09)
[2023-04-18] MEDS ORDERED: THIAMINE 100 MG/ML 2 ML VIAL IM STA (16:09)
[2023-04-18 16:46] LABS: Basophils % (A) 0 %; Eosinophils # (A) 0.2 k/uL (0-0.7); Eosinophils % (A) 4 %; HCT 42.1 % (39.0-53.0); HGB 14.2 gm/dL (13.0-17.5); Lymphocytes # (A) 1.1 k/uL (1.0-4.8); Lymphocytes % (A) 19 %; MCHC 33.8 g/dL (31.0-37.0); MCV 94.8 fL (80.0-100.0); Mean Platelet Volume 6.9; Monocytes # (A) 0.3 k/uL (0-1.0); Monocytes % (A) 5 %; Neutrophils # (A) 3.9 k/uL (1.3-7.7); Neutrophils % (A) 70 %; Platelet Count 233 k/uL (150-450); RBC 4.44 m/uL (4.30-5.90); WBC 5.6 k/uL (3.8-10.6)
[2023-04-18 17:01] LABS: ALT 389 U/L (4-49); AST 404 U/L (17-59); African American GFR (CKD) >90 (>60 ml/min/1.73 sqM); Albumin 4.7 g/dL (3.5-5.0); Alcohol 27 mg/dL; Alkaline Phosphatase 102 U/L (38-126); Anion Gap 14 mmol/L; Blood Urea Nitrogen 6 mg/dL (9-20); Calcium 9.1 mg/dL (8.4-10.2); Carbon Dioxide 23 mmol/L (22-30); Chloride 99 mmol/L (98-107); Magnesium 1.3 mg/dL (1.6-2.3); Non-African American GFR(CKD) >90 (>60 ml/min/1.73 sqM); Potassium 4.6 mmol/L (3.5-5.1); Sodium 136 mmol/L (137-145); Total Bilirubin 1.1 mg/dL (0.2-1.3); Total Protein 8.3 g/dL (6.3-8.2)
[2023-04-18 17:07] LABS: Glucose 96 mg/dL (74-99)
[2023-04-18] MEDS: SODIUM CHLORIDE 0.9% 1,000 ML IV SCH (17:15)
[2023-04-18 17:19] LABS: Partial Thromboplastin Time 27.6 sec (22.0-30.0); Prothrombin Time 10.3 sec (9.0-12.0)
[2023-04-18] MEDS ORDERED: NALOXONE 0.4 MG/ML 1 ML VIAL IV PRN (17:28)
[2023-04-18] MEDS ORDERED: ONDANSETRON 4 MG/2 ML VIAL IVP PRN (17:28)
[2023-04-18] MEDS: MAGNESIUM SULFATE-D5W PMX 1 GM in DEXTROSE/WATER 1 100ML.BAG IVPB SCH ×2 (18:34→20:12)
[2023-04-18] MEDS: LORazepam 2 MG/ML INJ IV PRN ×2 (20:09→22:03)
[2023-04-18] MEDS: ONDANSETRON 4 MG/2 ML VIAL IVP PRN (20:55)
[2023-04-18] MEDS: DOXYCYCLINE 100 MG CAP PO SCH (22:03)
[2023-04-18] MEDS: LOPERAMIDE 2 MG CAP PO PRN (22:03)
[2023-04-18] MEDS: CLOTRIMAZOLE/BETAMETH 1-0.05% CREAM 45 GM TUBE TOPICAL SCH (22:04)
[2023-04-18] MEDS: NICOTINE 21MG/24HR PATCH TRANSDERM SCH (22:04)
[2023-04-19] MEDS: LORazepam 2 MG/ML INJ IV PRN ×10 (00:57→22:40)
[2023-04-19] MEDS: SODIUM CHLORIDE 0.9% 1,000 ML IV SCH ×2 (06:47→07:39)
[2023-04-19] MEDS: PANTOPRAZOLE 40 MG/10 ML VIAL IV SCH (07:38)
[2023-04-19] MEDS: THIAMINE 100 MG TAB PO SCH (07:38)
[2023-04-19] MEDS: CLOTRIMAZOLE/BETAMETH 1-0.05% CREAM 45 GM TUBE TOPICAL SCH ×2 (07:38→20:28)
[2023-04-19] MEDS: DOXYCYCLINE 100 MG CAP PO SCH ×2 (07:38→19:58)
[2023-04-19] MEDS: NICOTINE 21MG/24HR PATCH TRANSDERM SCH (07:38)
[2023-04-19] MEDS: ONDANSETRON 4 MG/2 ML VIAL IVP PRN (07:39)
[2023-04-19 08:05] LABS: Basophils % (A) 0 %; Eosinophils # (A) 0.2 k/uL (0-0.7); Eosinophils % (A) 5 %; HCT 41.1 % (39.0-53.0); HGB 13.6 gm/dL (13.0-17.5); Lymphocytes # (A) 0.8 k/uL (1.0-4.8); Lymphocytes % (A) 17 %; MCH 31.5 pg (25.0-35.0); MCHC 33.2 g/dL (31.0-37.0); Mean Platelet Volume 7.4; Monocytes # (A) 0.3 k/uL (0-1.0); Monocytes % (A) 5 %; Neutrophils # (A) 3.4 k/uL (1.3-7.7); Neutrophils % (A) 71 %; Platelet Count 195 k/uL (150-450); RBC 4.32 m/uL (4.30-5.90); RDW 12.4 % (11.5-15.5); WBC 4.8 k/uL (3.8-10.6)
[2023-04-19 08:32] LABS: African American GFR (CKD) >90 (>60 ml/min/1.73 sqM); Anion Gap 8 mmol/L; Blood Urea Nitrogen 7 mg/dL (9-20); Calcium 8.4 mg/dL (8.4-10.2); Carbon Dioxide 27 mmol/L (22-30); Chloride 100 mmol/L (98-107); Glucose 86 mg/dL (74-99); Magnesium 1.8 mg/dL (1.6-2.3); Non-African American GFR(CKD) >90 (>60 ml/min/1.73 sqM); Potassium 3.9 mmol/L (3.5-5.1); Sodium 135 mmol/L (137-145)
[2023-04-19] MEDS ORDERED: MAGNESIUM SULFATE-D5W PMX 1 GM in DEXTROSE/WATER 1 100ML.BAG IVPB ONE (10:00)
[2023-04-19] MEDS: AMPICILLIN-SULBACTAM 3 GM in SODIUM CHLORIDE 0.9% 100 ML IVPB SCH ×3 (10:32→23:02)
[2023-04-19] MEDS: NYSTATIN 100,000 UNIT/GM POWD 15 GM TOPICAL SCH ×3 (10:33→19:49)
--- NOTE | 2023-04-19 10:41 | P.HPIM ---
History of Present Illness Patient was sent in from PCPs office for alcohol detoxification. Patient drinks about a pint of alcohol every day. Patient was complaining of cellulitis in the perianal area underneath need the scrotum with skin breakdown. Patient denied any nausea vomiting. Patient doesn't have any fever chills patient has mild leukocytosis. She is willing to quit alcohol. Patient was also complaining of bilateral crampy lower abdominal pain moderate severity. Patient was comparing of cough with sputum production sometimes colorless and sometimes discolored continues to smoke. REVIEW OF SYSTEMS: Other review of systems are negative except those mentioned above PHYSICAL EXAMINATION: GENERAL: The patient is alert and oriented x3, not in any acute distress. Well developed, well nourished. HEENT: Pupils are round and equally reacting to light. EOMI. No scleral icterus. No conjunctival pallor. Normocephalic, atraumatic. No pharyngeal erythema. No thyromegaly. CARDIOVASCULAR: S1 and S2 present. No murmurs, rubs, or gallops. PULMONARY: Chest is clear to auscultation, no wheezing or crackles. ABDOMEN: Soft, nontender, nondistended, normoactive bowel sounds. No palpable organomegaly. MUSCULOSKELETAL: No joint swelling or deformity. EXTREMITIES: No cyanosis, clubbing, or pedal edema. NEUROLOGICAL: Gross neurological examination did not reveal any focal deficits. SKIN: There is cellulitis with with skin breakdown in the perianal area underneath the scrotum with cellulitis. Assessment and plan -Alcohol abuse: Counseling was provided patient is willing to quit alcohol -Alcohol withdrawal patient is on Ativan CIWA protocol, thiamine multivitamin sedimentation and IV fluids -Perianal cellulitis: Nystatin powder will be ordered and patient was started on Unasyn -Possible mild colitis Unasyn should help will not do any further imaging unless patient the symptoms doesn't improve with antibiotics -Bronchitis: Inhalational treatments, Unasyn as mentioned above -Alcoholic hepatitis. He liver enzymes expected to improve with cessation of alcohol DVT prophylaxis: Early ambulation Past Medical History Past Medical History: Eye Disorder, GERD/Reflux, Hypertension Additional Past Medical History / Comment(s): ETOH abuse/withdrawal symptoms-sha morteza/nausea/headaches, pt states for past year has been having occasionally double/blurred vision, ruptured spleen, umbilical hernia, frequent diarrhea/painful to move bowels. History of Any Multi-Drug Resistant Organisms: None Reported Additional Past Surgical History / Comment(s): L hand injury/sutured. Past Anesthesia/Blood Transfusion Reactions: No Reported Reaction Past Psychological History: Bipolar, Depression Additional Psychological History / Comment(s): Pt resides with his brother, Nabil. Pt states he has had suicidal thoughts involving cutting self or hang ing. Pt seen by EPS. 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 He gets to [facility] by walking or driving. Smoking Status: Current every day smoker Past Alcohol Use History: Daily, Heavy Additional Past Alcohol Use History / Comment(s): Pt started smoking in 1996 and is a ppd smoker. He drinks a half gallon of vodka per day. Pt states he has had withdrawal symptoms in past, cannot recall seizure. Past Drug Use History: Marijuana Additional Drug Use History / Comment(s): No recent marijuana use. - Past Family History Mother Family Medical History: Mitral Valve Prolapse (MVP), Thyroid Disorder Additional Family Medical History / Comment(s): Mother of a [place] at the age of 46 yrs. Father Additional Family Medical History / Comment(s): Cellulitis Medications and Allergies Home Medications Medication Instructions Recorded Confirmed Type Clotrimazole/Betameth Cream 1 applic TOPICAL BID #45 gm 04/10/23 04/18/23 Rx [Lotrisone] Allergies Allergy/AdvReac Type Severity Reaction Status Date / Time No Known Allergies Allergy Verified 04/18/23 15:27 Physical Exam Vitals: Vital Signs Temp Pulse Pulse Resp BP BP Pulse Ox 04/19/23 07:32 97.9 F 98 20 147/99 98 04/19/23 03:49 97.9 F 102 H 22 141/99 98 04/19/23 00:56 98.1 F 100 20 150/95 95 04/18/23 20:00 97.8 F 94 22 158/108 97 04/18/23 19:18 87 18 142/98 98 04/18/23 17:00 89 18 154/103 96 04/18/23 15:22 98.0 F 88 20 162/91 95 Intake and Output 04/18/23 04/19/23 04/19/23 22:59 06:59 14:59 Intake Total 658 Balance 658 Intake: Oral 658 Other: Voiding Method Toilet # Voids 2 Weight 115.666 kg Results CBC & Chem 7: 04/19/23 06:54 04/19/23 06:54 Labs: Abnormal Lab Results - Last 24 Hours (Table) 04/18/23 04/19/23 04/19/23 Range/Units 16:17 06:54 06:54 Lymphocytes # 0.8 L (1.0-4.8) k/uL Sodium 136 L 135 L (137-145) mmol/L BUN 6 L 7 L (9-20) mg/dL Creatinine 0.48 L 0.63 L (0.66-1.25) mg/dL Magnesium 1.3 L (1.6-2.3) mg/dL AST 404 H (17-59) U/L ALT 389 H (4-49) U/L Total Protein 8.3 H (6.3-8.2) g/dL Thrombosis Risk Factor Assmnt - Choose All That Apply Each Factor Represents 1 point: Medical pt on bed rest, Obesity (BMI >25) Thrombosis Risk Factor Assessment Total Risk Factor Score: 2 Thrombosis Risk Factor Assessment Level: Low Risk
--- NOTE | 2023-04-19 14:24 | P.GSCN ---
History of Present Illness Consult date: 04/19/23 Reason for Consult: Scrotal cellulitis Requesting physician: Red Pelaez History of present illness: The patient is a 38-year-old white male admitted for alcohol detoxification. He consumes complaining of alcohol daily. He reports scrotal swelling with skin breakdown. I am consulted for this reason. The patient states that he has had scrotal swelling to varying degrees for the past 3 years. He has been treated with antibiotics. It has drained spontaneously at times. He has never undergone incision and drainage. Review of Systems - Constitutional Reports chills, Denies fever Past Medical History Past Medical History: Eye Disorder, GERD/Reflux, Hypertension Additional Past Medical History / Comment(s): ETOH abuse/withdrawal symptoms- shaking/nausea/headaches, pt states for past year has been having occasionally double/blurred vision, ruptured spleen, umbilical hernia, frequent d iarrhea/painful to move bowels. History of Any Multi-Drug Resistant Organisms: None Reported Additional Past Surgical History / Comment(s): L hand injury/sutured. Past Anesthesia/Blood Transfusion Reactions: No Reported Reaction Past Psychological History: Bipolar, Depression Additional Psychological History / Comment(s): Pt resides with his brother, Nabil. Pt states he has had suicidal thoughts involving cutting self or hanging. Pt seen by EPS. 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 He gets to [facility] by walking or driving. Smoking Status: Current every day smoker Past Alcohol Use History: Daily, Heavy Additional Past Alcohol Use History / Comment(s): Pt started smoking in 1996 and is a ppd smoker. He drinks a half gallon of vodka per day. Pt states he has had withdrawal symptoms in past, cannot recall seizure. Past Drug Use History: Marijuana Additional Drug Use History / Comment(s): No recent marijuana use. - Past Family History Mother Family Medical History: Mitral Valve Prolapse (MVP), Thyroid Disorder Additional Family Medical History / Comment(s): Mother of a [place] at the age of 46 yrs. Father Additional Family Medical History / Comment(s): Cellulitis Medications and Allergies Home Medications Medication Instructions Recorded Confirmed Type Clotrimazole/Betameth Cream 1 applic TOPICAL BID #45 gm 04/10/23 04/18/23 Rx [Lotrisone] Allergies Allergy/AdvReac Type Severity Reaction Status Date / Time No Known Allergies Allergy Verified 04/18/23 15:27 Surgical - Exam Vital Signs Temp Pulse Resp BP Pulse Ox 98.0 F 88 20 162/91 95 04/18/23 15:22 04/18/23 15:22 04/18/23 15:22 04/18/23 15:22 04/18/23 15:22 - General well developed, well nourished, no distress - Respiratory normal respiratory effort - Abdomen Abdomen: soft, non tender, no guarding, no rigid, no rebound - Genitourinary Normal phallus, normal urethral meatus. The testes are palpably normal. A 3 cm left scrotal abscess is noted at the groin crease. There is an area of fluctuance. There is no skin breakdown. There is minimal purulent drainage. There is no cellulitis. - Psychiatric oriented to time, oriented to person, oriented to place, speech is normal, memory intact Results - Labs 04/19/23 06:54 04/19/23 06:54 Abnormal Lab Results - Last 24 Hours (Table) 04/18/23 04/19/23 04/19/23 Range/Units 16:17 06:54 06:54 Lymphocytes # 0.8 L (1.0-4.8) k/uL Sodium 136 L 135 L (137-145) mmol/L BUN 6 L 7 L (9-20) mg/dL Creatinine 0.48 L 0.63 L (0.66-1.25) mg/dL Magnesium 1.3 L (1.6-2.3) mg/dL AST 404 H (17-59) U/L ALT 389 H (4-49) U/L Total Protein 8.3 H (6.3-8.2) g/dL Diabetes panel 04/18/23 04/19/23 Range/Units 16:17 06:54 Sodium 136 L 135 L (137-145) mmol/L Potassium 4.6 3.9 (3.5-5.1) mmol/L Chloride 99 100 (98-107) mmol/L Carbon Dioxide 23 27 (22-30) mmol/L BUN 6 L 7 L (9-20) mg/dL Creatinine 0.48 L 0.63 L (0.66-1.25) mg/dL Glucose 96 86 (74-99) mg/dL Calcium 9.1 8.4 (8.4-10.2) mg/dL AST 404 H (17-59) U/L ALT 389 H (4-49) U/L Alkaline Phosphatase 102 (38-126) U/L Total Protein 8.3 H (6.3-8.2) g/dL Albumin 4.7 (3.5-5.0) g/dL Calcium panel 04/18/23 04/19/23 Range/Units 16:17 06:54 Calcium 9.1 8.4 (8.4-10.2) mg/dL Albumin 4.7 (3.5-5.0) g/dL Pituitary panel 04/18/23 04/19/23 Range/Units 16:17 06:54 Sodium 136 L 135 L (137-145) mmol/L Potassium 4.6 3.9 (3.5-5.1) mmol/L Chloride 99 100 (98-107) mmol/L Carbon Dioxide 23 27 (22-30) mmol/L BUN 6 L 7 L (9-20) mg/dL Creatinine 0.48 L 0.63 L (0.66-1.25) mg/dL Glucose 96 86 (74-99) mg/dL Calcium 9.1 8.4 (8.4-10.2) mg/dL Adrenal panel 04/18/23 04/19/23 Range/Units 16:17 06:54 Sodium 136 L 135 L (137-145) mmol/L Potassium 4.6 3.9 (3.5-5.1) mmol/L Chloride 99 100 (98-107) mmol/L Carbon Dioxide 23 27 (22-30) mmol/L BUN 6 L 7 L (9-20) mg/dL Creatinine 0.48 L 0.63 L (0.66-1.25) mg/dL Glucose 96 86 (74-99) mg/dL Calcium 9.1 8.4 (8.4-10.2) mg/dL Total Bilirubin 1.1 (0.2-1.3) mg/dL AST 404 H (17-59) U/L ALT 389 H (4-49) U/L Alkaline Phosphatase 102 (38-126) U/L Total Protein 8.3 H (6.3-8.2) g/dL Albumin 4.7 (3.5-5.0) g/dL Assessment and Plan Assessment: Physical examination findings are consistent with a left scrotal abscess, which is draining spontaneously but is inadequately drained. Plan: Continue Unasyn. The patient will undergo incision and drainage of the scrotal abscess in the operating room tomorrow. This is been reviewed in detail with the patient. He has been made aware of potential risks, which include anesthesia, bleeding, infection, and recurrent abscess. The need for wound care postoperatively was discussed. Time with Patient: Greater than 30
[2023-04-19] MEDS: LOPERAMIDE 2 MG CAP PO PRN (15:30)
[2023-04-20] MEDS: LORazepam 2 MG/ML INJ IV PRN ×7 (01:17→22:57)
[2023-04-20] MEDS ORDERED: carvediloL 3.125 MG TAB PO STA (01:29)
[2023-04-20] MEDS ORDERED: MIDAZOLAM 2 MG/2 ML VIAL ONE (06:58)
[2023-04-20] MEDS ORDERED: SUCCINYLCHOLINE CHLORIDE 200 MG/10 ML VIAL IV ONE (06:58)
[2023-04-20] MEDS ORDERED: PROPOFOL 10 MG/ML 20 ML VIAL IV ONE (06:58)
[2023-04-20] MEDS ORDERED: LIDOCAINE 2% INJ 20 MG/ML (2 ML VIAL) ONE (06:58)
[2023-04-20] MEDS ORDERED: fentaNYL (PF) 50 MCG/ML 2 ML AMP ONE (06:58)
[2023-04-20] MEDS ORDERED: IV FLUID CONTINUATION 1,000 ML IV ONE (07:04)
--- NOTE | 2023-04-20 07:45 | P.OP ---
Date of Procedure: 04/20/23 Preoperative Diagnosis: Left scrotal abscess Postoperative Diagnosis: Same Procedure(s) Performed: Incision and drainage of left scrotal abscess Anesthesia: CHERYL Surgeon: Babak Foster Estimated Blood Loss (ml): 20 IV fluids (ml): 500 Pathology: none sent Condition: stable Disposition: PACU Indications for Procedure: The patient is a 38-year-old white male with a 3 year history of scrotal swelling to varying degrees for the past 3 years. He has been treated with antibiotics. It has drained spontaneously at times. He has never undergone incision and drainage. Examination is consistent with an incompletely draining left scrotal abscess. Operative Findings: Left lateral scrotal wall abscess. Description of Procedure: The patient was taken to the operating room and placed in the supine position. The external genitalia was prepped and draped sterilely. An area of induration was present within the left lateral scrotum. A small degree of purulent drainage was noted. Superior to this was an area of fluctuance. The scalpel was used to make an incision over the area of fluctuance. Purulent drainage was obtained. Aerobic and anaerobic cultures were obtained and sent. A hemostat was then used to probe the incision, and the incision was extended inferiorly to the inferior aspect of the abscess cavity. Total incision length was approximately 3 cm. Digital probing of the abscess revealed that it did not extend in any direction, and the wound was then irrigated with 0.9 normal saline. Diffuse oozing was noted, most of which was controlled with electrocautery. The wound was then packed with quarter-inch iodoform gauze. Surgical fluffs were placed over the incision, followed by a scrotal support. The patient tolerated the procedure well was taken to the recovery room in s table condition.
[2023-04-20] MEDS ORDERED: HYDROmorphone 0.5 MG/0.5 ML SYRINGE IVP ONE ×2 (07:48→07:50)
[2023-04-20] MEDS: NICOTINE 21MG/24HR PATCH TRANSDERM SCH (08:47)
[2023-04-20] MEDS: PANTOPRAZOLE 40 MG/10 ML VIAL IV SCH (08:47)
[2023-04-20] MEDS: THIAMINE 100 MG TAB PO SCH (08:47)
[2023-04-20] MEDS: AMPICILLIN-SULBACTAM 3 GM in SODIUM CHLORIDE 0.9% 100 ML IVPB SCH ×3 (08:47→19:47)
[2023-04-20] MEDS: NYSTATIN 100,000 UNIT/GM POWD 15 GM TOPICAL SCH ×3 (08:48→20:49)
[2023-04-20] MEDS: CLOTRIMAZOLE/BETAMETH 1-0.05% CREAM 45 GM TUBE TOPICAL SCH ×2 (08:48→20:49)
[2023-04-20] MEDS: DOXYCYCLINE 100 MG CAP PO SCH ×2 (08:50→20:45)
[2023-04-20] MEDS: SODIUM CHLORIDE 0.9% 1,000 ML IV SCH ×2 (08:51→20:49)
[2023-04-20 10:37] LABS: HGB 14.2 gm/dL (13.0-17.5); MCH 32.7 pg (25.0-35.0); MCHC 33.7 g/dL (31.0-37.0); MCV 96.8 fL (80.0-100.0); Mean Platelet Volume 7.9; Platelet Count 197 k/uL (150-450); RBC 4.33 m/uL (4.30-5.90); RDW 11.9 % (11.5-15.5); WBC 8.5 k/uL (3.8-10.6)
[2023-04-20 10:44] LABS: ALT 322 U/L (4-49); AST 354 U/L (17-59); African American GFR (CKD) >90 (>60 ml/min/1.73 sqM); Albumin 4.3 g/dL (3.5-5.0); Alkaline Phosphatase 102 U/L (38-126); Anion Gap 8 mmol/L; Blood Urea Nitrogen 7 mg/dL (9-20); Calcium 8.9 mg/dL (8.4-10.2); Carbon Dioxide 24 mmol/L (22-30); Chloride 104 mmol/L (98-107); Glucose 115 mg/dL (74-99); Magnesium 1.7 mg/dL (1.6-2.3); Non-African American GFR(CKD) >90 (>60 ml/min/1.73 sqM); Potassium 4.3 mmol/L (3.5-5.1); Sodium 136 mmol/L (137-145); Total Bilirubin 1.3 mg/dL (0.2-1.3); Total Protein 7.5 g/dL (6.3-8.2)
--- NOTE | 2023-04-20 11:02 | P.PN ---
Subjective Patient was sent in from PCPs office for alcohol detoxification. Patient drinks about a pint of alcohol every day. Patient was complaining of cellulitis in the perianal area underneath need the scrotum with skin breakdown. Patient denied any nausea vomiting. Patient doesn't have any fever chills patient has mild leukocytosis. She is willing to quit alcohol. Patient was also complaining of bilateral crampy lower abdominal pain moderate severity. Patient was comparing of cough with sputum production sometimes colorless and sometimes discolored continues to smoke. 04/20/2023 Patient had a scrotal abscess that was drained. Patient remains on Unasyn patient feels better, infectious disease is being consulted. Patient is still requiring Ativan often. Liver enzymes are getting better. Constitutional: Denied any fatigue denied any fever. Cardio vascular: denied any chest pain, palpitations Gastrointestinal denied any nausea vomiting Pulmonary: Denied any shortness of breath cough Neurologic denied any new focal deficits All inpatient medications were reviewed and appropriate changes in these medications as dictated in the interval history and assessment and plan. PHYSICAL EXAMINATION: GENERAL: The patient is alert and oriented x3, not in any acute distress. Well developed, well nourished. HEENT: Pupils are round and equally reacting to light. EOMI. No scleral icterus. No conjunctival pallor. Normocephalic, atraumatic. No pharyngeal erythema. No thyromegaly. CARDIOVASCULAR: S1 and S2 present. No murmurs, rubs, or gallops. PULMONARY: Chest is clear to auscultation, no wheezing or crackles. ABDOMEN: Soft, nontender, nondistended, normoactive bowel sounds. No palpable organomegaly. MUSCULOSKELETAL: No joint swelling or deformity. EXTREMITIES: No cyanosis, clubbing, or pedal edema. NEUROLOGICAL: Gross neurological examination did not reveal any focal deficits. SKIN: Postsurgical packing in the. Lyrica Assessment and plan -Alcohol abuse: -Alcohol withdrawal patient is on Ativan CIWA protocol, thiamine multivitamin sedimentation and IV fluids -Perianal abscess: Continue Unasyn, pending abscess cultures status post abscess drainage -Low possibility of colitis patient does have crampy pain, if pain doesn't improve consider Bentyl -Bronchitis: Inhalational treatments, Unasyn as mentioned above -Alcoholic hepatitis. He liver enzymes expected to improve with cessation of alcohol DVT prophylaxis: Lovenox Objective - Vital Signs Vital signs: Vital Signs Temp 98.2 F 04/20/23 08:44 Pulse 78 04/20/23 08:44 Resp 20 04/20/23 08:44 BP 152/111 04/20/23 08:44 Pulse Ox 97 04/20/23 08:44 FiO2 Intake & Output 04/19/23 04/20/23 04/20/23 18:59 06:59 18:59 Intake Total 1434 0 1795 Output Total 20 Balance 1434 0 1775 Intake: IV 900 Oral 1434 0 895 Output: Estimated Blood Loss 20 Other: Voiding Method Toilet Toilet Toilet # Voids 1 1 # Bowel Movements 5 - Labs CBC & Chem 7: 04/20/23 10:21 04/20/23 10:21 Labs: Abnormal Lab Results - Last 24 Hours (Table) 04/20/23 Range/Units 10:21 Sodium 136 L (137-145) mmol/L BUN 7 L (9-20) mg/dL Creatinine 0.61 L (0.66-1.25) mg/dL Glucose 115 H (74-99) mg/dL AST 354 H (17-59) U/L ALT 322 H (4-49) U/L
[2023-04-20] MEDS: ENOXAPARIN 40 MG/0.4 ML SYRINGE SQ SCH (11:14)
[2023-04-20] MEDS ORDERED: VANCOMYCIN IV PER PHARMACY 1 EACH MISC MISCELLANE PRN (13:19)
[2023-04-20] MEDS ORDERED: VANCOMYCIN 1,750 MG in SODIUM CHLORIDE 0.9% 500 ML 500 ML IVPB ONE (14:00)
[2023-04-20] MEDS: ONDANSETRON 4 MG/2 ML VIAL IVP PRN (16:25)
[2023-04-20] MEDS: LOPERAMIDE 2 MG CAP PO PRN (16:25)
[2023-04-20] MEDS: lisinopriL 20 MG TAB PO SCH (16:38)
[2023-04-20] MEDS: MELATONIN 5 MG TABLET PO SCH (19:48)
[2023-04-20] MEDS ORDERED: ACETAMINOPHEN TAB 325 MG TAB PO PRN (20:21)
--- NOTE | 2023-04-20 20:21 | P.CONS ---
History of Present Illness - Reason for Consult Consult date: 04/20/23 - History of Present Illness Patient is a 38-year-old male with a past medical significant for hypertension reflux apparently did have a cyst to the scrotal area with the patient mention he has for a while however over the last 2 weeks noticed to have increasing pain swelling redness patient was describing the pain to be more of a sharp 6-7 out of 10 and radiated with associated swelling and redness denies high-grade fever patient apparently was sent to the hospital for alcohol detox on arrival to the ER the patient was afebrile and no fever has been recorded subsequently patient did have a normal white count kidney function has been normal levels as mildly elevated serum alcohol level was 27 patient has been diagnosed with a scrotal abscess evaluated by urology in this patient who is status post drainage of the left scrotal abscess patient currently on Unasyn infectious disease was consulted for further management of antibiotic therapy Past Medical History Past Medical History: Eye Disorder, GERD/Reflux, Hypertension Additional Past Medical History / Comment(s): ETOH abuse/withdrawal symptoms- shaking/nausea/headaches, pt states for past year has been having occasionally double/blurred vision, ruptured spleen, umbilical hernia, frequent diarrhea/painful to move bowels. History of Any Multi-Drug Resistant Organisms: None Reported Additional Past Surgical History / Comment(s): L hand injury/sutured. Past Anesthesia/Blood Transfusion Reactions: No Reported Reaction Past Psychological History: Bipolar, Depression Additional Psychological History / Comment(s): Pt resides with his brother, Nabil. Pt states he has had suicidal thoughts involving cutting self or hanging. Pt seen by EPS. 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 He gets to [facility] by walking or driving. Smoking Status: Current every day smoker Past Alcohol Use History: Daily, Heavy Additional Past Alcohol Use History / Comment(s): Pt started smoking in 1996 and is a ppd smoker. He drinks a half gallon of vodka per day. Pt states he has had withdrawal symptoms in past, cannot recall seizure. Past Drug Use History: Marijuana Additional Drug Use History / Comment(s): No recent marijuana use. - Past Family History Mother Family Medical History: Mitral Valve Prolapse (MVP), Thyroid Disorder Additional Family Medical History / Comment(s): Mother of a [place] at the age of 46 yrs. Father Additional Family Medical History / Comment(s): Cellulitis Medications and Allergies Home Medications Medication Instructions Recorded Confirmed Type Clotrimazole/Betameth Cream 1 applic TOPICAL BID #45 gm 04/10/23 04/18/23 Rx [Lotrisone] Allergies Allergy/AdvReac Type Severity Reaction Status Date / Time No Known Allergies Allergy Verified 04/18/23 15:27 Physical Exam Vitals: Vital Signs Temp Pulse Resp BP Pulse Ox 04/20/23 11:11 96 18 153/114 97 04/20/23 08:44 98.2 F 78 20 152/111 97 04/20/23 08:26 77 20 148/105 94 L 04/20/23 08:10 76 20 119/74 91 L 04/20/23 07:55 89 20 119/69 94 L 04/20/23 07:40 96.9 F L 89 18 113/67 95 04/20/23 03:22 98.4 F 85 20 151/104 94 L 04/20/23 01:18 162/113 04/19/23 22:41 97.6 F 84 18 160/111 97 04/19/23 19:38 98.7 F 88 18 157/106 95 04/19/23 15:19 97.7 F 95 20 157/94 97 04/19/23 13:49 92 Intake and Output 04/19/23 04/20/23 04/20/23 22:59 06:59 14:59 Intake Total 118 0 2335 Output Total 560 Balance 118 0 1775 Intake: IV 900 Oral 118 0 1435 Output: Urine 540 Estimated Blood Loss 20 Other: Voiding Method Toilet Toilet Toilet # Voids 1 1 1 # Bowel Movements 5 Results CBC & Chem 7: 04/20/23 10:21 04/20/23 10:21 Labs: Abnormal Lab Results - Last 24 Hours (Table) 04/20/23 Range/Units 10:21 Sodium 136 L (137-145) mmol/L BUN 7 L (9-20) mg/dL Creatinine 0.61 L (0.66-1.25) mg/dL Glucose 115 H (74-99) mg/dL AST 354 H (17-59) U/L ALT 322 H (4-49) U/L Assessment and Plan Plan: 1patient with a left scrotal abscess in this patient status post surgical drainage likely from gram-positive skin víctor such as staph gram-negative fracture less likely but not entirely excluded 2-we will adjust the dose of Unasyn to 3 g per 6-hour and add vancomycin pharmacy to dose while waiting for the culture to finalize we will follow on clinical condition and cultures to further adjust medication if needed Thank you for this consultation we will follow the patient along with you Time with Patient: Greater than 30
[2023-04-20] MEDS: KETOROLAC 15 MG/ML 1 ML VIAL IVP PRN (20:45)
[2023-04-20] MEDS: VANCOMYCIN 1,750 MG in SODIUM CHLORIDE 0.9% 500 ML 500 ML IVPB SCH (20:50)
[2023-04-21] MEDS: AMPICILLIN-SULBACTAM 3 GM in SODIUM CHLORIDE 0.9% 100 ML IVPB SCH ×4 (02:59→20:52)
[2023-04-21] MEDS: LORazepam 2 MG/ML INJ IV PRN ×5 (02:59→20:28)
[2023-04-21] MEDS: VANCOMYCIN 1,750 MG in SODIUM CHLORIDE 0.9% 500 ML 500 ML IVPB SCH ×2 (05:02→17:27)
[2023-04-21] MEDS: KETOROLAC 15 MG/ML 1 ML VIAL IVP PRN ×2 (05:02→11:29)
[2023-04-21 07:57] LABS: ALT 273 U/L (4-49); AST 261 U/L (17-59); African American GFR (CKD) >90 (>60 ml/min/1.73 sqM); Albumin 3.7 g/dL (3.5-5.0); Albumin/Globulin Ratio 1.2; Alkaline Phosphatase 93 U/L (38-126); Anion Gap 6 mmol/L; Blood Urea Nitrogen 8 mg/dL (9-20); Calcium 8.3 mg/dL (8.4-10.2); Carbon Dioxide 28 mmol/L (22-30); Chloride 103 mmol/L (98-107); Glucose 81 mg/dL (74-99); Magnesium 1.7 mg/dL (1.6-2.3); Non-African American GFR(CKD) >90 (>60 ml/min/1.73 sqM); Potassium 3.9 mmol/L (3.5-5.1); Sodium 137 mmol/L (137-145); Total Protein 6.7 g/dL (6.3-8.2)
[2023-04-21] MEDS: THIAMINE 100 MG TAB PO SCH (08:01)
[2023-04-21] MEDS: NICOTINE 21MG/24HR PATCH TRANSDERM SCH (08:01)
[2023-04-21] MEDS: PANTOPRAZOLE 40 MG/10 ML VIAL IV SCH (08:01)
[2023-04-21] MEDS: lisinopriL 20 MG TAB PO SCH (08:01)
[2023-04-21] MEDS: DOXYCYCLINE 100 MG CAP PO SCH ×2 (08:02→20:28)
[2023-04-21] MEDS: ENOXAPARIN 40 MG/0.4 ML SYRINGE SQ SCH (08:02)
[2023-04-21] MEDS: NYSTATIN 100,000 UNIT/GM POWD 15 GM TOPICAL SCH ×3 (08:11→21:00)
[2023-04-21] MEDS: CLOTRIMAZOLE/BETAMETH 1-0.05% CREAM 45 GM TUBE TOPICAL SCH ×2 (08:12→20:54)
[2023-04-21] MEDS: SODIUM CHLORIDE 0.9% 1,000 ML IV SCH (12:40)
--- NOTE | 2023-04-21 13:08 | P.PN ---
Subjective Progress Note Date: 04/21/23 Principal diagnosis: Scrotal abscess, POD #1 status post I & D The patient reports mild left scrotal discomfort. He is afebrile. Objective - Vital Signs Vital signs: Vital Signs Temp 98 F 04/21/23 06:54 Pulse 81 04/21/23 06:54 Resp 18 04/21/23 08:30 BP 169/125 04/21/23 06:54 Pulse Ox 97 04/21/23 06:54 FiO2 Intake & Output 04/20/23 04/21/23 04/21/23 18:59 06:59 18:59 Intake Total 2335 Output Total 560 Balance 1775 Intake: IV 900 Oral 1435 Output: Urine 540 Estimated Blood Loss 20 Other: Voiding Method Toilet Toilet Toilet Urinal Urinal Urinal # Voids 1 2 - Constitutional General appearance: Present: average body habitus, no acute distress - Genitourinary Genitourinary Comment(s): Normal phallus, normal urethral meatus. The testes are palpably normal. The packing was removed, and the left scrotal abscess cavity is clean with scant purulent drainage. - Psychiatric Psychiatric: Present: A&O x's 3 - Labs CBC & Chem 7: 04/20/23 10:21 04/21/23 06:41 Labs: Abnormal Lab Results - Last 24 Hours (Table) 04/21/23 Range/Units 06:41 BUN 8 L (9-20) mg/dL Creatinine 0.62 L (0.66-1.25) mg/dL Calcium 8.3 L (8.4-10.2) mg/dL AST 261 H (17-59) U/L ALT 273 H (4-49) U/L Assessment and Plan (1) Scrotal abscess Current Visit: Yes Status: Acute Code(s): N49.2 - INFLAMMATORY DISORDERS OF SCROTUM SNOMED Code(s): 26802061 Plan: Continue Unasyn. Begin dressing changes.
[2023-04-21] MEDS: HYDROcodone/APAP 5-325MG 1 EACH TAB PO PRN ×2 (16:22→22:15)
[2023-04-21] MEDS: hydrALAZINE HCL 50 MG TAB PO SCH ×2 (16:22→20:59)
[2023-04-21] MEDS: LOSARTAN 50 MG TAB PO SCH (16:23)
[2023-04-21] MEDS: MELATONIN 5 MG TABLET PO SCH (20:28)
--- NOTE | 2023-04-21 22:40 | P.PN ---
Subjective Progress Note Date: 04/21/23 Principal diagnosis: L scrotal abscess Patient is a 38-year-old male presenting to the hospital with left scrotal pain swelling redness has been diagnosed with a left scrotal abscess s/p surgical drainage. On today's evaluation that is 04/21/2023, the patient denies having any fever or any chills patient is breathing comfortably patient pain to the left scrotal area is currently controlled no nausea no vomiting and no diarrhea Objective - Vital Signs Vital signs: Vital Signs Temp 98 F 04/21/23 06:54 Pulse 81 04/21/23 06:54 Resp 18 04/21/23 08:30 BP 169/125 04/21/23 06:54 Pulse Ox 97 04/21/23 06:54 FiO2 Intake & Output 04/20/23 04/21/23 04/21/23 18:59 06:59 18:59 Intake Total 2335 Output Total 560 Balance 1775 Intake: IV 900 Oral 1435 Output: Urine 540 Estimated Blood Loss 20 Other: Voiding Method Toilet Toilet Toilet Urinal Urinal Urinal # Voids 1 2 - Exam GENERAL DESCRIPTION: Middle-age male up in the chair in no distress RESPIRATORY SYSTEM: Unlabored breathing , decreased breath sounds at bases HEART: S1 S2 regular rate and rhythm ABDOMEN: Soft , no tenderness : Left scrotal wound is currently packed no significant surrounding induration or redness EXTREMITIES: No edema feet - Labs CBC & Chem 7: 04/20/23 10:21 04/21/23 06:41 Labs: Abnormal Lab Results - Last 24 Hours (Table) 04/21/23 Range/Units 06:41 BUN 8 L (9-20) mg/dL Creatinine 0.62 L (0.66-1.25) mg/dL Calcium 8.3 L (8.4-10.2) mg/dL AST 261 H (17-59) U/L ALT 273 H (4-49) U/L Assessment and Plan (1) Scrotal abscess Current Visit: Yes Status: Acute Code(s): N49.2 - INFLAMMATORY DISORDERS OF SCROTUM SNOMED Code(s): 55495609 Plan: 1patient with a left scrotal abscess in this patient status post surgical drainage likely from gram-positive skin víctor such as staph gram-negative fracture less likely but not entirely excluded 2-Pt to contiue with Unasyn to 3 g per 6-hour and vancomycin pharmacy to dose while waiting for the culture to finalize Time with Patient: Less than 30
[2023-04-22] MEDS: LORazepam 2 MG/ML INJ IV PRN (01:00)
[2023-04-22] MEDS: SODIUM CHLORIDE 0.9% 1,000 ML IV SCH ×2 (02:39→08:36)
[2023-04-22] MEDS: AMPICILLIN-SULBACTAM 3 GM in SODIUM CHLORIDE 0.9% 100 ML IVPB SCH ×2 (03:09→10:35)
[2023-04-22] MEDS: VANCOMYCIN 1,750 MG in SODIUM CHLORIDE 0.9% 500 ML 500 ML IVPB SCH ×2 (03:25→06:44)
[2023-04-22] MEDS: HYDROcodone/APAP 5-325MG 1 EACH TAB PO PRN ×2 (04:19→10:35)
--- NOTE | 2023-04-22 07:21 | P.PN ---
Subjective Progress Note Date: 04/22/23 Ration is recuperating from incision drainage of a scrotal abscess he is feeling better Objective - Vital Signs Vital signs: Vital Signs Temp 97.5 F L 04/22/23 02:00 Pulse 81 04/22/23 02:00 Resp 20 04/22/23 02:00 BP 133/90 04/22/23 02:00 Pulse Ox 96 04/22/23 02:00 FiO2 Intake & Output 04/21/23 04/22/23 04/22/23 18:59 06:59 18:59 Intake Total 250 Balance 250 Intake: Oral 250 Other: Voiding Method Toilet Toilet Urinal Urinal # Voids 3 2 - Genitourinary Genitourinary Comment(s): Minimal tenderness and induration of the cavity on the left posterior scrotum where the abscess was drained. - Labs CBC & Chem 7: 04/20/23 10:21 04/21/23 06:41 Labs: Abnormal Lab Results - Last 24 Hours (Table) 04/21/23 Range/Units 06:41 BUN 8 L (9-20) mg/dL Creatinine 0.62 L (0.66-1.25) mg/dL Calcium 8.3 L (8.4-10.2) mg/dL AST 261 H (17-59) U/L ALT 273 H (4-49) U/L Assessment and Plan Assessment: Impression: Scrotal abscess treated Plan: The patient can go home from a urologic standpoint and should follow-up in our office in one week.
[2023-04-22 07:58] LABS: African American GFR (CKD) >90 (>60 ml/min/1.73 sqM); Non-African American GFR(CKD) >90 (>60 ml/min/1.73 sqM)
[2023-04-22 08:05] VITALS: BP 156/106; PULSE 75; RESP 18; TEMP 97.9
[2023-04-22] MEDS: PANTOPRAZOLE 40 MG/10 ML VIAL IV SCH (08:37)
[2023-04-22] MEDS: THIAMINE 100 MG TAB PO SCH (08:37)
[2023-04-22] MEDS: ENOXAPARIN 40 MG/0.4 ML SYRINGE SQ SCH (08:37)
[2023-04-22] MEDS: LOSARTAN 50 MG TAB PO SCH (08:37)
[2023-04-22] MEDS: hydrALAZINE HCL 50 MG TAB PO SCH (08:37)
[2023-04-22] MEDS: NICOTINE 21MG/24HR PATCH TRANSDERM SCH (08:38)
[2023-04-22] MEDS: DOXYCYCLINE 100 MG CAP PO SCH (08:38)
[2023-04-22] MEDS: NYSTATIN 100,000 UNIT/GM POWD 15 GM TOPICAL SCH (08:39)
[2023-04-22] MEDS: CLOTRIMAZOLE/BETAMETH 1-0.05% CREAM 45 GM TUBE TOPICAL SCH (08:39)
[2023-04-22] MEDS: KETOROLAC 15 MG/ML 1 ML VIAL IVP PRN (08:50)
[2023-04-22] MEDS ORDERED: VANCOMYCIN TROUGH DUE 1 EACH MISC MISCELLANE ONE (13:00)
[2023-04-22] MEDS ORDERED: ACAMPROSATE CALCIUM 333 MG TABLET.DR PO SCH (16:00)
[2023-04-22] MEDS ORDERED: hydrALAZINE HCL 50 MG TAB PO SCH (16:00)
[2023-04-22] MEDS ORDERED: VANCOMYCIN 1,750 MG in SODIUM CHLORIDE 0.9% 500 ML 500 ML IVPB SCH (18:00)
[2023-04-22] MEDS ORDERED: AMOXIC-POT CLAV 875-125MG 1 EACH TAB PO SCH (21:00)
[2023-04-22] MEDS ORDERED: ETODOLAC 400 MG TAB PO SCH (21:00)
[2023-04-23] MEDS ORDERED: VANCOMYCIN TROUGH DUE 1 EACH MISC MISCELLANE ONE (09:00)
== END 2023-04-22 14:15 | disposition home or self-care (01) | DRG 775 ==
LOC: EC 14:28 → 3SCARD 17:29 → 4SSUR 04-20 15:57
PROVIDERS: ADMIT Family Medicine; ATTEND Family Medicine
PROC: 0V950ZX Drainage of Scrotum, Open Approach, Diagnostic (ICD-10-PCS; principal; 2023-04-20 07:00)
DX: F10.129 Alcohol abuse with intoxication, unspecified (principal); F10.131 Alcohol abuse with withdrawal delirium; K61.0 Anal abscess; F31.9 Bipolar disorder, unspecified; K70.10 Alcoholic hepatitis without ascites; F10.139 Alcohol abuse with withdrawal, unspecified; Z28.310 Unvaccinated for COVID-19; I10 Essential (primary) hypertension; E83.42 Hypomagnesemia; N49.2 Inflammatory disorders of scrotum; J40 Bronchitis, not specified as acute or chronic; K21.9 Gastro-esophageal reflux disease without esophagitis; H53.8 Other visual disturbances; Y90.1 Blood alcohol level of 20-39 mg/100 ml; F17.210 Nicotine dependence, cigarettes, uncomplicated; Z79.899 Other long term (current) drug therapy; Z71.41 Alcohol abuse counseling and surveillance of alcoholic
CPT/HCPCS: 36415; 80048; 80053; 80320; 82565; 83735; 85025; 85027; 85610; 85730; 87070; 87075; 87205; 96361; 96365; 96372; 96375; 99285